=== PATIENT | male | born 1945 | race Caucasian/White ===

== ENCOUNTER 2018-02-03 06:13 | Day surgery (SDC) | payer MEDICARE ==
[2018-02-03] VITALS (8 sets, daily range): BP systolic 107–140; BP diastolic 61–80
[~2018-02-03] VITALS: Ht 177.8 cm; Wt 78.0 kg
[~2018-02-03 06:13] MED LIST: ACCUPRIL10 MG PO; AMOXICILLIN500 MG PO; ASPIRIN81 MG PO; CARVEDILOL25 MG PO; EMERGEN C VITAM PO; METAMUCIL0.52 G1 PO; MONTELUKAST SOD10 MG PO; OCEANIC SELENI50 MCG PO; TAMSULOSIN HCL0.4 MG PO; [UNRECOGNIZED DRUG - OTHER]
--- NOTE | 2018-02-03 11:45 | NUR ---
PT ARRIVED FROM OR VIA STRETCHER ACCOMPANIED BY STAFF. IV SITE IS FREE FROM REDNESS OR EDEMA. SERRATO DRAINING BLOODY URINE. IRRIGATION IS GOING WELL. HAS CLOTS COMING FROM PENIS. FAMILY IN THE ROOM. HR IS REG, PULSES ARE STRONG X4, ABD IS SOFT WITH ACTIVE BS. CONTINUE TO OSBERVE AND MONITOR.
--- NOTE | 2018-02-03 12:30 | NUR ---
HAD LARGE AMOUNTS OF BLOOD CLOTS COME OUT OF THE BAG, PT NOT C/O ANY PAIN. ABLE TO TOLERATE FOOD. CONTINUE TO OBSERVE AND MONITOR.
[2018-02-03 12:47] LABS: HEMATOCRIT 42.5 % (39.0-50.0); HEMOGLOBIN 13.9 g/dl (14.0-18.0); IMMATURE GRANULOCYTES 0.4 % (0.0-1.0); MEAN CELL VOLUME 89.7 fL CALC (80.0-100.0); MEAN CORPUSCULAR HGB 29.3 pG CALC (26.0-32.0); MEAN CORPUSCULAR HGB CONC 32.7 g/L CALC (32.0-36.0); NEUT# 10.98 thou/uL (1.82-7.42); RED BLOOD COUNT 4.74 mill/uL (4.70-6.10); RED CELL DISTRI WIDTH 13.4 % (11.5-15.5)
[2018-02-03 12:54] LABS: ANION GAP 16 (6-22 (CALC)); BUN 13 mg/dL (8-23); BUN/CREATININE RATIO 13 (12-20 (CALC)); CARBON DIOXIDE 24 mmol/l (22-30); CHLORIDE 105 mmol/l (95-108); GFR > 60 ML/MIN (>=60 (CALC)); GFR FOR AFR.AMER. > 60 ML/MIN (>=60 (CALC)); POTASSIUM 4.4 mmol/l (3.5-5.1); SODIUM 140 mmol/l (137-146)
--- NOTE | 2018-02-03 13:40 | NUR ---
HAD A NEG 1050 FROM IRIGATION DUE TO DUAL BAGS WHEN COMING FROM OR. IT WILL CONTINUE TO FLOW. HAD RED WITH BLOOD CLOTS.
--- NOTE | 2018-02-03 14:00 | NUR ---
PT IS RELAXING IN BED WITH NO DISTRESS NOTED. IV SITE IS FREE FROM REDNESS OR EDMEA.
--- NOTE | 2018-02-03 14:30 | NUR ---
PLACED A CALL TO OR TO HAVE DR. EDGE COME OR CALL RE; BLOOD CLOTS.
--- NOTE | 2018-02-03 15:30 | NUR ---
CAME UP AND CHECKED ON THE PT. WANTING TO HAVE ALL NIGHT WITH IRRIGATION IF IT BECOMES CLEAR THEN ABLE TO REDUCE FLUID IRRIGATION. INFORMED ABOUT LARGE CLOTS. INFORMED PT THAT IT IS NORMAL AND THAT IS WHY THE IRRIGATION, FAMILY AND PT VERBALIZED UNDERSTANDING.
--- NOTE | 2018-02-03 18:00 | NUR ---
PT WAS EATING SUPPER AND WANTED TO COUGH, THEN VOMITED ALL OF HIS DINNER. NO C/O NAUSEA. AFTERWARDS PT WAS DOING FINE.
--- NOTE | 2018-02-03 19:15 | NUR ---
BEDSIDE REPORT RECEIVED FROM NEYMAR CALDERÓN. PT SITTING UP IN BED WITH AT BEDSIDE. CBI IN PROGRESS, ON SALINE BAG #25 AT THIS TIME; URINE IS CRANBERRY WITH SMALL BLOOD CLOTS. TRACTION DEVICE ON PENIS AND RED BLOODY DRAINAGE FROM TURP SITE. PT DENIES ANY PAIN OR SPASMS. IS AT BEDSIDE AND SCD'S TO BLE. IV SITE APPEARS HEALTHY AND FLUSHES. ALERT AND OREINTED. RESPIRATIONS EVEN AND UNLABORED ON ROOM AIR. PLAN OF CARE DISCUSSED PT ENCOURAGED TO VERBALIZE CONCERNS. STATES UNDERSTANDING. SAFETY MEASURES IN PLACE. CALL LIGHT WITHIN REACH.
--- NOTE | 2018-02-03 22:00 | NUR ---
CBI CONTINUES AND PT CONTINUES TO DENY ANY PAIN. TO STAY THE NIGHT AT BEDSIDE. URINE CLEARED FROM CRANBERRY TO PINK. DR. EDGE NOTIFIED OF PT STATUS. TELEPHONE ORDER TO REMOVE TRACTION DEVICE AND CONTINUE FULL FLOW OF CBI UNTIL CLEAR WITH NO BLOOD CLOTS; MAY TITRATE CBI DOWN AT THAT TIME. STATES HE WILL BE IN EARLY IN THE MORNING. PT TOLERATING CBI WELL. SAFETY MEASURES IN PLACE. CALL LIGHT WITHIN REACH.
--- NOTE | 2018-02-03 22:30 | NUR ---
PT HAD OCCASIONAL C/O ABDOMINAL DISTENTION WITH SOME UPPER ABDOMINAL TENDERNESS. BS ARE ACTIVE; PT DENIES PASSING ANY FLATUS SINCE SURGERY. ABDOMEN IS VISUALLY MORE DISTENDED AND FIRM; ABDOMINAL GIRTH AT THIS TIME IS 41.5 INCHES. WILL CONTINUE TO MONITOR.
--- NOTE | 2018-02-04 04:00 | NUR ---
PT GIVEN TRAMADOL FOR LOWER ABDOMINAL AND GROIN PAIN 4/10 WITH GOOD EFFECT; DENIES PAIN TO SITE. UP TO BSC FOR SMALL SOFT BM. DRAINAGE TO SERRATO BAG IS CLEAR/LIGHT PINK; CBI SLOWED. ABDOMEN REMAINS DISTENDED AND FIRM; ABDOMINAL GIRTH UNCHANGED FROM EARILER. IV SITE APPEARES HEALTHY AND FLUSHES. NO OTHER REQUESTS OR COMPLAINTS. SAFETY MEASURES IN PLACE. CALL LIGHT WITHIN REACH.
[2018-02-04 04:05] VITALS: BP 124/67
--- NOTE | 2018-02-04 05:45 | NUR ---
DR. EDGE AT BEDSIDE. DISCONTINUED CBI; INFUSION SITE CLAMPED AND REMOVED. SERRATO NOW DRAINING BRIGHT RED DRAINAGE. STATES THAT LONG CLOTS ARE NOT COMING OUT, THE RED BLOOD IS OK. INSTRUCTED PT TO HOLD ASPIRIN UNTIL WEDNESDAY WHEN SERRATO IS D/C'D. ADDRESSED ABDOMINAL BLOATING WITH PT AND AUSCULTATED BOWEL SOUNDS. ORAL INTAKE ENCOURAGED. DENIES PAIN CURRENTLY; CALL LIGHT WITHIN REACH.
[2018-02-04 06:01] LABS: ANION GAP 15 (6-22 (CALC)); BUN 15 mg/dL (8-23); BUN/CREATININE RATIO 13 (12-20 (CALC)); CARBON DIOXIDE 21 mmol/l (22-30); CHLORIDE 107 mmol/l (95-108); CREATININE 1.2 mg/dL (0.7-1.3); GFR 59 ML/MIN (>=60 (CALC)); GFR FOR AFR.AMER. > 60 ML/MIN (>=60 (CALC)); MAGNESIUM 1.5 mg/dL (1.6-2.3); POTASSIUM 3.9 mmol/l (3.5-5.1); SODIUM 139 mmol/l (137-146)
[2018-02-04 06:42] LABS: IMMATURE GRANULOCYTES 0.5 % (0.0-1.0); MEAN CELL VOLUME 90.4 fL CALC (80.0-100.0); MEAN CORPUSCULAR HGB 29.5 pG CALC (26.0-32.0); MEAN CORPUSCULAR HGB CONC 32.6 g/L CALC (32.0-36.0); NEUT# 5.29 thou/uL (1.82-7.42); RED BLOOD COUNT 3.76 mill/uL (4.70-6.10); RED CELL DISTRI WIDTH 13.8 % (11.5-15.5)
[2018-02-04 06:46] LABS: HEMOGLOBIN 11.1 g/dl (14.0-18.0)
[2018-02-04 08:00] VITALS: BP 129/62
--- NOTE | 2018-02-04 08:00 | NUR ---
PT IS RELAIXNG IN BED HR IS REG, PULSES ARE STRONG X4,A BD IS SOFT WITH ACTIVE BS. IV SITE IS FREE FROM REDNESS OR EDEMA. SERRATO INTACT HAS SOME ALBERTO COLORED URINE. SOME BLEEDING NOTED FROM THE PENIS. CONTINUE TO OBSERVE AND MONITOR.
--- NOTE | 2018-02-04 10:00 | NUR ---
PT AMBUALTED IN THE HALLWAY, THEN TO THE BATHROOM. BECAME A LITTLE DIZZY, AND THEN CALMED DOWN. IV SITE IS FREE FROM REDNESS OR EDEMA. SPOKE WITH PT. AND INFORMED THAT WHEN HE IS READY TO GO HOME. SERRATO HAD SMALL TRACE OF BLOOD AND THEN CLEARED BACK UP.
[2018-02-04 10:45] VITALS: BP 129/62
--- NOTE | 2018-02-04 11:15 | NUR ---
IRRIGATED THE SERRATO TO MAKE SURE IT WAS A LITTLE CLEARER. AND PT TOLERATED WELL. AT 1230 CHANGED TO THE LEG BAG, AND GAVE A NIGHT TIME BAG FOR PT TO TAKE HOME. FAMILY IN THE ROOM AND LISTENING TO INSTRUCTIONS.
--- NOTE | 2018-02-04 11:50 | NUR ---
Discharged to: Home Discharged via: Wheelchair Accompanied by: family D/C Condition: stable Diet: as tolerated Diet modification: no caffeine Activity: As tolerated Home Health: OTHER Follow up appointment: DR EDGE IN 2 -3 WEEKS, Special instructions: GENERAL INSTRUCTIONS FROM , IF ANY ISSUES RETURN TO THE HOSPITAL , Medications: SEE MEDICATION RECONCILIATION FORM Prescriptions Given:AZO (CRANBERRY), TRAMADOL, KEFLEX Please notify your physician if you received either one of these vaccinations: Influenza Vaccine - Date: Pneumococcal Vaccine - Date: Patient Education Materials Provided: Yes - Food and Drug Interaction Guide No - Anticoagulation Education Booklet Contains the following information: 1. Compliance issues 2. Dietary advice 3. Follow up monitoring 4. Potential for adverse drug reactions and interactions No - Smoking Cessation Booklet IF SYMPTOMS WORSEN, OR IF YOU HAVE ADDITIONAL QUESTIONS, PLEASE CONTACT YOUR PERSONAL PHYSICIAN OR SEEK EMERGENCY CARE. CALL YOUR PHYSICIAN IF YOU DO NOT GET RELIEF FROM THE PAIN MEDICATIONS PRESCRIBED, OR IF THE INTENSITY OF PAIN INCREASES, OR IF PAIN IS INTERFERING WITH ACTIVITY OR REST. IF YOU SMOKE, YOU NEED TO QUIT. IT IS GOOD FOR YOU AND EVERYONE AROUND YOU! Your physician and [facility] care about you and your health. The facts are clear. Smoking causes 1 out of 5 deaths in the [place] each year. It is the major preventable cause of emphysema, lung cancer, chronic bronchitis, heart disease and stroke. Quitting is one of the best things you can ever do for yourself and those you love. What better time to quit than now! You've already been cigarette free during your stay. Studies have shown that the first 48 hours of quitting are the toughest. Just a few of the benefits your body begins to experience are blood pressure returns to normal, the carbon monoxide level in your blood drops to normal, your chance of heart attack decreases, and your ability to smell and taste is enhanced. Here are some resources that you may find helpful: [place] [employer] www.lungusa.org www.cancer.org [place] [employer] [facility] (Tobacco Prevention and Control Program) www.americanheart.org www.[place].[email or web address].fl.us Finally don't forget that your doctor may be able to help you. Whichever method you choose will be good for you. IF YOU HAVE A DIAGNOSIS OF CONGESTIVE HEART FAILURE, THERE ARE SEVERAL ADDITIONAL INSTRUCTIONS FOR YOU TO FOLLOW UPON DISCHARGE FROM THE HOSPITAL. Weigh yourself every day and if weight gain is greater than 2 pounds in a day, call your physican. If you experience worsening symptoms such as: Problems with breathing or shortness of breath Ankle/foot/leg swelling Unexplained weight gain greater than 2 pounds Call your physician or come to the emergency room. IF YOU HAVE A DIAGNOSIS OF STROKE, THERE ARE SEVERAL ADDITIONAL INSTRUCTIONS FOR YOU TO FOLLOW: A stroke occurs when something happens to interrupt the steady flow of blood to the brain, like a clot or a burst in a blood vessel. Brain cells quickly begin to . These INCREASE your chance of having a STROKE: * Smoking * High blood pressure * Diabetes * Obesity WARNING SIGNS OR SYMPTOMS: * Sudden weakness on one side of body. * Sudden confusion, trouble speaking or understanding. * Sudden trouble seeing. * Sudden trouble walking or loss of balance. * Sudden severe headache with no known cause. CALL At Any Sign of Stroke. You can beat a stroke. Disabilities can be prevented or limited, but you have must go to the Emergency Department immediately. Go in an Ambulance. Save Time. Be Seen Faster! If you were admitted to the hospital for a stroke After DISCHARGE you must: * Keep ALL follow up appointments. * Take your medications as ordered by your doctor. * Do not take any other drugs without checking with your doctor first. * Do not drive unless your doctor says it is okay. * Call your doctor with any questions or concerns. IF YOU WERE DISCHARGED ON COUMADIN/WARFARIN ANTICOAGULATION THERAPY, THERE ARE SEVERAL ADDITIONAL INSTRUCTIONS FOR YOU TO FOLLOW: Anticoagulants are medications that help prevent blood clots. They are often prescribed for people with certain heart, lung and blood vessel diseases to help prevent heart attacks and strokes. IMPORTANT Anticoagulation medications have been used for many years, but it can be difficult to manage. That's because many factors can affect how they work-including small changes in dose or dose timing, what you eat or drink, other medications and stress. You and your doctor must work closely together to manage this important medication. * Take your medicine EXACTLY as instructed by your doctor. * You must have your blood drawn for PT/INR to monitor your medication. * Do not take any new medications, vitamins or herbal supplements without asking your doctor first. FOODS: * Eat the same amount of foods that contain Vitamin K every day. * Avoid or limit alcohol. * Avoid major changes in diet or notify your doctor first. FOLLOW UP MONITORING: See your physician within one week to monitor your condition. You will need to have blood tests performed to monitor the medication. DRUG INTERACTIONS: * Diet and medications can affect the PT/INR level. * Do not take or discontinue any medication or over the counter medication unless your doctor okays. * Warfarin/Coumadin increases the risk of bleeding. CALL YOUR PHYSICIAN IF: If you notice any signs of increased bleedin. Excessive bruising. 2. Abnormal bleeding from nose or gums. 3. Road Runner, red or dark brown urine. 4. Minor bleeding or bright red blood from the bowel. CALL 911 OR GO TO THE HOSPITAL IF: 1. You have black tarry stools. 2. Sudden dizziness, faintness or weakness. 3. Cold or numbness in arm or leg. 4. Sudden chest pain. 5. Trouble talking or moving one side of body. 6. Coughing or vomiting bright red blood. 7. Severe headache or stomach pain. 8. Serious fall or hit to the head. Visit our website at [email or web address] You are going home today. Depending on your insurance coverage, you may be receiving a bill from the hospital for your hospital stay. If you have any question about your bill, please call the Business Office at [phone] or contact us at our web address: [email or web address]. If applicable, I have received my medication information as recommeded by my provider upon discharge. I have read and understand the above discharge instructions. Pt Signature: Date: Time: Witnessed by: Date: Time: Complete the record of communication to the next provider below. These discharge instructions, including discharge medications, is to be faxed to the next provider at the time of the patient's discharge. ____These instructions faxed to next Provider (Provider Name) on (Date) @ (Time) . ____The second provider involved in patient care following discharge has been faxed this information. These instructions faxed to (Provider-Home Health, Physical Therapy, Agency) on (Date) @ (Time) . OR ____Patient unable/unwilling to verbalize who the next provider of care will be, instructed patient to take these instructions to next appointment with healthcare provider.
--- NOTE | 2018-02-04 13:00 | NUR ---
DISCHARGE INSTRUCTIONS GIVEN AND VERBALIZED UNDERSTANDING., IV SITE TAKEN OUT. AND TOOK ALL BELONGINGS. VERY APPRECIATIVE OF ALL THE CARE. CONTINUE TO OSBERVE AND MONITOR. Discharge instructions given. Patient verbalizes understanding of same. Discharged in stable condition via Wheelchair to Home with family. All belongings sent with pt.
== END 2018-02-04 13:00 | disposition home health service (06) ==
LOC: ORM 06:13 → MS2 10:45 → ORM 11:00
PROVIDERS: ATTEND Urology
PROC: 0V508ZZ Destruction of Prostate, Via Natural or Artificial Opening Endoscopic (ICD-10-PCS; principal; 2018-02-03)
DX: N40.1 Benign prostatic hyperplasia with lower urinary tract symptoms (principal); R33.8 Other retention of urine; Q54.9 Hypospadias, unspecified
CPT/HCPCS: 0421T; J2270